=== PATIENT | female | born 1950 ===

== ENCOUNTER 2016-09-04 12:08 | Emergency (ER) | payer MEDICAID ==
[2016-09-04 12:08] VITALS: BMI 31.0
[2016-09-04 12:26] VITALS: TEMP 97.8
[2016-09-04] MEDS ORDERED: Sodium Chloride 0.9% 1,000 ML IV STA (12:45)
--- NOTE | 2016-09-04 12:49 | ED PDOC ---
Hyperglycemia/Hypoglycemia Time Seen by Provider: 09/04/16 12:31 Chief Complaint (Nursing): Weakness/Neurological Deficit Chief Complaint (Provider): Weakness/Neurological Deficit History Per: Patient History/Exam Limitations: no limitations Onset/Duration Of Symptoms: Hrs Current Symptoms Are (Timing): Still Present Severity: Mild Current Diabetic Medications: Insulin : The patient does not have any of the infectious symptoms listed except for those marked. Additional Complaint(s): Patient is a 65 year old female with a history of DM, presents to ED for evaluation of elevated blood sugar today. Patient reports taking her insulin twice daily as prescribed but felt dizzy today and took her blood sugar. Patient notes that at this time it was over 500. Denies chest pain, nausea, vomiting or abdominal pain PMD: Dr. Nova Past Medical History Reviewed: Historical Data, Nursing Documentation, Vital Signs Vital Signs: Last Vital Signs Temp 97.8 F 09/04/16 12:23 Pulse 88 09/04/16 12:23 Resp 19 09/04/16 12:23 BP 129/81 09/04/16 12:23 Pulse Ox 100 09/04/16 12:23 - Medical History PMH: Anemia, Asthma, Depression, Gastritis, HIV, HTN, Hypercholesterolemia, Hyperlipidemia Denies: Chronic Kidney Disease - Surgical History Surgical History: Endoscopy - Family History Family History: States: Unknown Family Hx - Living Arrangements Living Arrangements: With Family - Immunization History Hx Tetanus Toxoid Vaccination: Yes Hx Influenza Vaccination: Yes Hx Pneumococcal Vaccination: Yes - Home Medications Home Medications: Ambulatory Orders Medication Instructions Recorded Fluconazole [Diflucan] 100 mg PO DAILY 08/15/15 MetFORMIN [glucOPHAGE] 1,000 mg PO BID 08/15/15 Multivit, Iron, Min #5, FA 1 each PO DAILY 08/15/15 [Strovite Forte Caplet] Albuterol HFA [Ventolin HFA 90 2 puff INH Q4H 03/26/16 mcg/actuation (8 g)] Atorvastatin [Lipitor] 1 tab PO DAILY 03/26/16 Emtricita/rilpivir/tenofovir 1 tab PO DAILY 03/26/16 [Complera 200 mg-25 mg-300 mg] Enalapril Maleate [Vasotec] 1 tab PO DAILY 03/26/16 Lurasidone Hydrochloride [Latuda] 1 tab PO DAILY 03/26/16 SITagliptin [Januvia] 1 tab PO DAILY 03/26/16 - Allergies Allergies/Adverse Reactions: Allergies Allergy/AdvReac Type Severity Reaction Status Date / Time No Known Allergies Allergy Verified 08/15/15 07:08 Review of Systems ROS Statement: Except As Marked, All Systems Reviewed And Found Negative Constitutional: Negative for: Fever, Chills, Weakness Eyes: Negative for: Vision Change Cardiovascular: Negative for: Chest Pain, Palpitations Respiratory: Negative for: Shortness of Breath Gastrointestinal: Negative for: Nausea, Vomiting, Abdominal Pain Neurological: Positive for: Dizziness. Negative for: Weakness, Numbness, Headache Physical Exam - Reviewed Nursing Documentation Reviewed: Yes Vital Signs Reviewed: Yes - Physical Exam Appears: Positive for: Non-toxic, No Acute Distress Skin: Positive for: Normal Color, Warm Eye Exam: Positive for: Normal appearance Neck: Positive for: Normal, Painless ROM Cardiovascular/Chest: Positive for: Regular Rate, Rhythm. Negative for: Murmur Respiratory: Positive for: Normal Breath Sounds. Negative for: Respiratory Distress Gastrointestinal/Abdominal: Positive for: Normal Exam. Negative for: Tenderness Back: Positive for: Normal Inspection Extremity: Positive for: Normal ROM Neurologic/Psych: Positive for: Alert, Oriented - Laboratory Results Result Diagrams: 09/04/16 13:03 09/04/16 13:03 - ECG O2 Sat by Pulse Oximetry: 100 (RA) Pulse Ox Interpretation: Normal Medical Decision Making Medical Decision Making: Time: 1245 Initial impression: Hyperglycemia r/o DKA Initial plan: -- CMP -- Troponin -- Urine dip -- CBC -- NSF Scribe Attestation: Documented by Deena Martin acting as a scribe for Dina Newman MD MD Scribe Attestation: All medical record entries made by the Scribe were at my direction and personally dictated by me. I have reviewed the chart and agree that the record accurately reflects my personal performance of the history, physical exam, medical decision making, and the department course for this patient. I have also personally directed, reviewed, and agree with the discharge instructions and disposition. Disposition - Clinical Impression Clinical Impression: Hyperglycemia due to type 1 diabetes mellitus, Hyperglycemia - Patient ED Disposition Is Patient to be Admitted: No Doctor Will See Patient In The: Office Counseled Patient/Family Regarding: Studies Performed, Diagnosis - Disposition Referrals: [facility] [place] [Outside] Disposition: Routine/Home Disposition Time: 14:30 Condition: GOOD Additional Instructions: Follow up with your PCP in 2-3 days. Instructions: Diabetic Hyperglycemia (ED)
[2016-09-04 13:10] LABS: BASO % 0.6 % (0.0-2.0); EOS # 0.2 K/uL (0.0-0.7); EOS % 2.6 % (0.0-4.0); HEMATOCRIT 39.8 % (34.0-47.0); LYMPH # 1.8 K/uL (1.0-4.3); LYMPH % 29.9 % (20.0-40.0); MEAN CELL VOLUME 86.8 fl (81.0-99.0); MEAN CORPUSCULAR HEMOGLOBIN 29.1 pg (27.0-31.0); MEAN CORPUSCULAR HGB CONC 33.5 g/dL (33.0-37.0); MEAN PLATELET VOLUME 8.9 fl (7.2-11.7); MONO # 0.3 K/uL (0.0-0.8); MONO % 5.6 % (0.0-10.0); NEUT # 3.7 K/uL (1.8-7.0); NEUT % 61.3 % (50.0-75.0); NRBC % 0.1 % (0.0-0.0); RED CELL DISTRIBUTION WIDTH 13.2 % (11.5-14.5)
[2016-09-04 13:46] LABS: CHLORIDE 98 mmol/L (98-107)
[2016-09-04 13:47] LABS: POTASSIUM 4.4 MMOL/L (3.6-5.0); SODIUM 137 mmol/l (132-148)
[2016-09-04 13:49] LABS: ALB/GLOB RATIO 1.2 (1.0-2.1); AST/SGOT 24 U/L (14-36); BILIRUBIN,TOTAL 0.6 mg/dl (0.2-1.3); CARBON DIOXIDE 26 mmol/L (22-30); GFR AFRICAN-AMERICAN > 60; TOTAL PROTEIN 8.6 G/DL (6.3-8.2)
[2016-09-04 13:50] LABS: ALKALINE PHOSPHATASE 158 U/L (38-126); ALT/SGPT 24 U/L (9-52); BLOOD UREA NITROGEN 14 mg/dl (7-17); CALCIUM 9.8 mg/dL (8.4-10.2); GLUCOSE,RANDOM 319 mg/dL (65-105)
[2016-09-04] MEDS ORDERED: Insulin Regular 100 units/ml IV STA (13:55)
[2016-09-04 14:54] VITALS: BP 132/95; PULSE 86; RESP 18
[2016-09-05 20:05] VITALS: O2SAT 100
== END 2016-09-04 14:54 | disposition home or self-care (01) ==
LOC: H.ER 12:08
DX: E10.65 Type 1 diabetes mellitus with hyperglycemia (principal); E78.00 Pure hypercholesterolemia, unspecified; I10 Essential (primary) hypertension; Z79.84 Long term (current) use of oral hypoglycemic drugs

== ENCOUNTER 2017-12-01 08:40 | Inpatient (IN) | payer MEDICAID, MEDICARE ==
[2017-12-01 08:48] VITALS: BMI 31.7
[2017-12-01 10:21] LABS: BASO % 0.9 % (0.0-2.0); EOS # 0.2 K/uL (0.0-0.7); EOS % 3.6 % (0.0-4.0); LYMPH # 1.7 K/uL (1.0-4.3); LYMPH % 32.1 % (20.0-40.0); MEAN CORPUSCULAR HEMOGLOBIN 29.5 pg (27.0-31.0); MEAN CORPUSCULAR HGB CONC 33.9 g/dL (33.0-37.0); MEAN PLATELET VOLUME 7.5 fl (7.2-11.7); MONO # 0.3 K/uL (0.0-0.8); MONO % 5.8 % (0.0-10.0); NEUT % 57.6 % (50.0-75.0); NRBC % 0.1 % (0.0-0.0); RBC 4.42 Mil/uL (3.80-5.20); WHITE BLOOD COUNT 5.2 K/uL (4.8-10.8)
--- NOTE | 2017-12-01 10:30 | ED PDOC ---
HPI: Abdomen Time Seen by Provider: 12/01/17 09:06 Chief Complaint (Nursing): Abdominal Pain Chief Complaint (Provider): abdominal pain and constipation History Per: Patient History/Exam Limitations: no limitations Onset/Duration Of Symptoms: Days (4x) Current Symptoms Are (Timing): Still Present Quality Of Discomfort: "Pain" Associated Symptoms: Vomiting, Constipation. denies: Nausea, Diarrhea Additional Complaint(s): 67 year old female presents to the ED complaining of constant abdominal pain and constipation onset for 4 days. States she usually has bowel movement every 3 days. Patient states she had a hysterectomy. Reports she vomited yesterday but not today. Denies nausea or diarrhea. PMD: Clayton Garcia Past Medical History Reviewed: Historical Data, Nursing Documentation, Vital Signs Vital Signs: Last Vital Signs Temp 98.1 F 12/03/17 09:00 Pulse 90 12/03/17 09:00 Resp 19 12/03/17 09:00 BP 141/96 H 12/03/17 09:00 Pulse Ox 100 12/03/17 09:00 - Medical History PMH: Anemia, Asthma, Depression, Gastritis, HIV, HTN, Hypercholesterolemia, Hyperlipidemia Denies: Chronic Kidney Disease - Surgical History Surgical History: Endoscopy - Family History Family History: States: Unknown Family Hx - Immunization History Hx Tetanus Toxoid Vaccination: Yes Hx Influenza Vaccination: Yes Hx Pneumococcal Vaccination: Yes - Home Medications Home Medications: Ambulatory Orders Medication Instructions Recorded MetFORMIN [glucOPHAGE] 1,000 mg PO BID 08/15/15 Enalapril Maleate [Vasotec] 10 mg PO DAILY 03/26/16 Dolutegravir Sodium [Tivicay] 50 mg PO DAILY 01/28/17 Omeprazole 40 mg PO DAILY 01/28/17 Emtricitabine/Tenofovir Diso 1 tab PO DAILY 03/18/17 [Truvada 200 MG-300 MG] Albuterol/Ipratropium [Combivent 1 puff IH Q6 PRN 12/01/17 Respimat] Amitriptyline [Elavil] 100 mg PO HS 12/01/17 Aripiprazole [Abilify] 30 mg PO DAILY 12/01/17 Gabapentin [Neurontin] 300 mg PO Q12 12/01/17 Insulin Glargine,Hum.rec.anlog 50 unit SC BID 12/01/17 [Fortunato Nowak U-100] buPROPion [Wellbutrin] 75 mg PO DAILY 12/01/17 - Allergies Allergies/Adverse Reactions: Allergies Allergy/AdvReac Type Severity Reaction Status Date / Time tramadol Allergy DIZZINESS Verified 12/01/17 08:55 Review of Systems ROS Statement: Except As Marked, All Systems Reviewed And Found Negative Gastrointestinal: Positive for: Abdominal Pain, Constipation. Negative for: Nausea, Vomiting, Diarrhea Physical Exam - Reviewed Nursing Documentation Reviewed: Yes Vital Signs Reviewed: Yes - Physical Exam Appears: Positive for: Non-toxic, No Acute Distress Head Exam: Positive for: ATRAUMATIC, NORMAL INSPECTION, NORMOCEPHALIC Skin: Positive for: Normal Color, Warm, Dry Eye Exam: Positive for: Normal appearance ENT: Positive for: Normal ENT Inspection Neck: Positive for: Normal, Painless ROM, Supple. Negative for: Decreased ROM Cardiovascular/Chest: Positive for: Regular Rate, Rhythm. Negative for: Murmur Respiratory: Positive for: Normal Breath Sounds. Negative for: Decreased Breath Sounds, Wheezing, Respiratory Distress Gastrointestinal/Abdominal: Positive for: Soft, Tenderness (mild generalized). Negative for: Guarding, Rebound Back: Positive for: Normal Inspection. Negative for: L CVA Tenderness, R CVA Tenderness Extremity: Positive for: Normal ROM. Negative for: Tenderness, Pedal Edema, Deformity Neurologic/Psych: Positive for: Alert, Oriented (x3). Negative for: Motor/ Sensory Deficits - Laboratory Results Result Diagrams: 12/03/17 05:30 12/03/17 05:30 - ECG O2 Sat by Pulse Oximetry: 96 (RA) Pulse Ox Interpretation: Normal - Physician Consult Information Physician Contacted: Javad Ortega Medical Decision Making Medical Decision Making: Time: 949 Initial Impression: abdominal pain and constipation Initial Plan: --Abd & Pelvis IV Contrast CT --EKG --CMP --ED Urine dipstick --CBC w/ Differential --PTT --Prothrombin Time --Morphine 2mg IV --Urinalysis --Reevaluation Time: 1250 PROCEDURE: CT Abdomen and Pelvis with contrast HISTORY: Abd pain, constipation X 1 week COMPARISON: Noncontrast abdomen and pelvis CT 11/06/2017. TECHNIQUE: Contrast dose: Omnipaque 300, 95 cc Radiation dose: Total exam DLP = 890.05 mGy-cm. This CT exam was performed using one or more of the following dose reduction techniques: Automated exposure control, adjustment of the mA and/or kV according to patient size, and/or use of iterative reconstruction technique. FINDINGS: LOWER THORAX: Unremarkable. LIVER: Hepatic steatosis reiterated with liver appearing stable. GALLBLADDER AND BILE DUCTS: Gallbladder is again seen distended. Local reactive changes relative to the 1st and 2nd segments the duodenum are favored over possible gallbladder neck origin. No radiodense cholelithiasis is seen once again. PANCREAS: Unremarkable. No gross lesion or ductal dilatation. SPLEEN: Unremarkable. ADRENALS: Unremarkable. No mass. KIDNEYS AND URETERS: Unremarkable. No hydronephrosis. No solid mass. VASCULATURE: Unremarkable. No aortic aneurysm. BOWEL: Stomach is collapsed. Thickening of the proximal duodenum is suggested with local. Duodenal reaction suspicious for possible advanced duodenitis or even ulcer. Microperforation not completely excluded. No free intra peritoneal gas however. No ascites. Clinically correlate further. The bowel is not appear obstructed appear prominent fecal loading is seen at the ascending through hepatic flexure segments suspicious for developing constipation although the distal large bowel appears largely collapsed. Occasional diverticula are associated with the left hemicolon however there is no diverticulitis. APPENDIX: Normal appendix. PERITONEUM: Unremarkable. No free fluid. No free air. LYMPH NODES: Unremarkable. No enlarged lymph nodes. BLADDER: Unremarkable. REPRODUCTIVE: Prior hysterectomy reiterated. BONES: No acute fracture. OTHER FINDINGS: None. IMPRESSION: 1. Dural thickening at the 1st and 2nd segments the duodenum is suspected with definite kay duodenal reactive change but no free air abscess or ascites. As this reactive changes appears to involve the neck of the gallbladder, this is felt to be sympathetic rather than intrinsic to the gallbladder and the findings suspicious for prominent duodenitis or even potential micro perforated ulcer GI consultation recommended as clinically warranted. 2. Hepatic steatosis. 3. Nonacute scattered colonic diverticular changes again evident. 4. Prior hysterectomy. Time: 1409 Called co founder and president Scribe Attestation: Documented by Norma Garcia, acting as a scribe for Lily Leyva MD Provider Scribe Attestation: All medical record entries made by the Scribe were at my direction and personally dictated by me. I have reviewed the chart and agree that the record accurately reflects my personal performance of the history, physical exam, medical decision making, and the department course for this patient. I have also personally directed, reviewed, and agree with the discharge instructions and disposition. Disposition - Clinical Impression Clinical Impression: Duodenitis - Disposition Disposition Time: 15:00 Condition: STABLE - Pt Status Changed To: Hospital Disposition Of: Inpatient - Admit Certification Admit to Inpatient:: After my assessment, the patient will require hospitalization for at least two midnights. This is because of the severity of symptoms shown, intensity of services needed, and/or the medical risk in this patient being treated as an outpatient. - POA Present On Arrival: None
[2017-12-01 10:34] LABS: SQUAMOUS EPITHIAL 4 /hpf (0-5); URINE BILIRUBIN NEGATIVE (NEGATIVE); URINE BLOOD NEGATIVE (NEGATIVE); URINE CLARITY SLIGHTY-CLOUDY (Clear); URINE COLOR YELLOW (YELLOW); URINE GLUCOSE (UA) >=500 mg/dL (Normal); URINE HYALINE CAST 0-2 /hpf (0-2); URINE LEUKOCYTE ESTERASE MOD Leu/uL (Negative); URINE PROTEIN 30 mg/dL (NEGATIVE)
[2017-12-01 10:39] LABS: PARTIAL THROMBOPLASTIN TIME 32.2 Seconds (25.6-37.1); PROTHROMBIN TIME 10.9 Seconds (9.8-13.1)
[2017-12-01 10:46] LABS: ALB/GLOB RATIO 1.1 (1.0-2.1); ALBUMIN 4.4 g/dL (3.5-5.0); ALT/SGPT 27 U/L (9-52); AST/SGOT 23 U/L (14-36); BLOOD UREA NITROGEN 11 mg/dl (7-17); CALCIUM 9.7 mg/dL (8.4-10.2); GFR AFRICAN-AMERICAN > 60; GFR NON-AFRICAN AMERICAN > 60
[2017-12-01] MEDS ORDERED: Sodium Chloride 0.9% 1,000 ML IV STA (12:03)
--- NOTE | 2017-12-01 12:52 | CT ---
PROCEDURE: CT Abdomen and Pelvis with contrast HISTORY: Abd pain, constipation X 1 week COMPARISON: Noncontrast abdomen and pelvis CT 11/06/2017. TECHNIQUE: Contrast dose: Omnipaque 300, 95 cc Radiation dose: Total exam DLP = 890.05 mGy-cm. This CT exam was performed using one or more of the following dose reduction techniques: Automated exposure control, adjustment of the mA and/or kV according to patient size, and/or use of iterative reconstruction technique. FINDINGS: LOWER THORAX: Unremarkable. LIVER: Hepatic steatosis reiterated with liver appearing stable. GALLBLADDER AND BILE DUCTS: Gallbladder is again seen distended. Local reactive changes relative to the 1st and 2nd segments the duodenum are favored over possible gallbladder neck origin. No radiodense cholelithiasis is seen once again. PANCREAS: Unremarkable. No gross lesion or ductal dilatation. SPLEEN: Unremarkable. ADRENALS: Unremarkable. No mass. KIDNEYS AND URETERS: Unremarkable. No hydronephrosis. No solid mass. VASCULATURE: Unremarkable. No aortic aneurysm. BOWEL: Stomach is collapsed. Thickening of the proximal duodenum is suggested with local. Duodenal reaction suspicious for possible advanced duodenitis or even ulcer. Microperforation not completely excluded. No free intra peritoneal gas however. No ascites. Clinically correlate further. The bowel is not appear obstructed appear prominent fecal loading is seen at the ascending through hepatic flexure segments suspicious for developing constipation although the distal large bowel appears largely collapsed. Occasional diverticula are associated with the left hemicolon however there is no diverticulitis. APPENDIX: Normal appendix. PERITONEUM: Unremarkable. No free fluid. No free air. LYMPH NODES: Unremarkable. No enlarged lymph nodes. BLADDER: Unremarkable. REPRODUCTIVE: Prior hysterectomy reiterated. BONES: No acute fracture. OTHER FINDINGS: None. IMPRESSION: 1. Dural thickening at the 1st and 2nd segments the duodenum is suspected with definite kay duodenal reactive change but no free air abscess or ascites. As this reactive changes appears to involve the neck of the gallbladder, this is felt to be sympathetic rather than intrinsic to the gallbladder and the findings suspicious for prominent duodenitis or even potential micro perforated ulcer GI consultation recommended as clinically warranted. 2. Hepatic steatosis. 3. Nonacute scattered colonic diverticular changes again evident. 4. Prior hysterectomy.
--- NOTE | 2017-12-01 14:56 | CARD ---
APPROVED REPORT EKG Measurement Heart [id number] <Conclusion> Normal sinus rhythm Normal ECG
[2017-12-01] MEDS ORDERED: Piperacillin/Tazobact 3.375 gm Inj IVPB ONE (15:22)
[2017-12-01] MEDS: Piperacillin/Tazobact 3.375 GM in Sodium Chloride 0.9% 100 ML IVPB SCH ×2 (15:26→21:04)
--- NOTE | 2017-12-01 15:38 | CP.PCM.HP ---
History of Present Illness - History of Present Illness History of Present Illness: "maximus been constipated all week and last night my stomach really hurt" 67 y/o female, with PMHx remarkable for HIV, HTN, IDDM2, Asthma, presented for evaluation of acute worsening of abominal pain. Pt reports pain started 5 days ago when she became constipated. She attempted to take 2 tablets of Dulcolax but they did not help her have a bowel movement. Pain gradually worsened the past 5 days without any noticable alleviating factors. Pain was 5/10, "bloating like" in character, nonradiating, exacerbated with movement or pressure. Last night pain acutely worsened without triggering factor, prompting pt to come to ED for evaluation. She reports she has associated nausea with loss of appetite. She had 1 episode of vomiting yesterday that was NBNB. Denies fever/chills, CP/ SOB/Palpitations, diarrhea, urinary symptoms. ROS: 12 points reviewed, as per HPI PMD: Clayton Garcia PMHx: HIV, IDDM2, HTN, HLD, Asthma (unspecified severity) Meds: as per med rec ALL: Tramadol (pruritus) PsurgHx: hysterecomty (2010) due to fibroids FamilyHx: denies family hx of [place], [place], DM Social Hx: 4 ciggarettes per day since age 15, denies ETOH/drug abuse Next of Kin: as per demographics (confirmed) Code Status: full code ED course: Vitals: tachycardia 118, otherwise stable CBC: wnl CMP: elevated glucose Coags: wnl UA: mod LE, mod RBCs Imaging Abd pelvis/CT w contrast: dual thickening at the 1st/2nd segments the duodenum is suspected with definite kay duodenal reactive changes but no free air abscess or ascites. Reactive changes appear to involve the neck of the gallbladder. This is felt to be sympathetic rather than intrinsic to gallbladder and the finding suspicious for prominent duodenitis or even potential microperforation ulcer. Tx npo, pain control, IV fluids, GI and Surg Consults Present on Admission - Present on Admission Any Indicators Present on Admission: No History of DVT/PE: No History of Uncontrolled Diabetes: No Urinary Catheter: No Decubitus Ulcer Present: No Review of Systems - Review of Systems All systems: reviewed and no additional remarkable complaints except Past Patient History - Infectious Disease Hx of Infectious Diseases: None - Past Medical History & Family History Past Medical History?: Yes Past Family History: Reviewed and not pertinent - Past Social History Smoking Status: Light Smoker < 10 Cigarettes Daily Alcohol: None Drugs: Denies Home Situation {Lives}: Alone - CARDIAC Hx Hypercholesterolemia: Yes Hx Hypertension: Yes - PULMONARY Hx Asthma: Yes - NEUROLOGICAL Hx Neurological Disorder: Yes Other/Comment: Neuropathy - HEENT Hx HEENT Problems: Yes Other/Comment: OROPHARYNGEAL CANDIDIASIS. Blurry vision - RENAL Hx Chronic Kidney Disease: No - ENDOCRINE/METABOLIC Hx Endocrine Disorders: Yes Hx Diabetes Mellitus Type 1: Yes Hx Diabetes Mellitus Type 2: Yes - HEMATOLOGICAL/ONCOLOGICAL Hx Anemia: Yes Hx Human Immunodeficiency Virus (HIV): Yes - INTEGUMENTARY Hx Dermatological Problems: No - MUSCULOSKELETAL/RHEUMATOLOGICAL Hx Musculoskeletal Disorders: Yes Other/Comment: LT KNEE PAIN - GASTROINTESTINAL Hx Gastritis: Yes - GENITOURINARY/GYNECOLOGICAL Hx Genitourinary Disorders: No - PSYCHIATRIC Hx Depression: Yes - SURGICAL HISTORY Hx Surgeries: Yes Hx Hysterectomy: Yes Other/Comment: RT PAROTID MASS NEEDLE ASPIRATION - ANESTHESIA Hx Anesthesia: Yes Hx Anesthesia Reactions: No Hx Malignant Hyperthermia: No Meds Allergies/Adverse Reactions: Allergies Allergy/AdvReac Type Severity Reaction Status Date / Time tramadol Allergy DIZZINESS Verified 12/01/17 08:55 Physical Exam - Constitutional Appears: Well, Non-toxic, No Acute Distress - Head Exam Head Exam: ATRAUMATIC, NORMAL INSPECTION, NORMOCEPHALIC - Eye Exam Eye Exam: EOMI, Normal appearance, PERRL. absent: Conjunctival injection, Scleral icterus Pupil Exam: NORMAL ACCOMODATION, PERRL - ENT Exam ENT Exam: Mucous Membranes Moist, Normal Exam - Neck Exam Neck exam: Positive for: Normal Inspection. Negative for: Lymphadenopathy - Respiratory Exam Respiratory Exam: Clear to Auscultation Bilateral, NORMAL BREATHING PATTERN. absent: Accessory Muscle Use, Decreased Breath Sounds, Rales, Rhonchi, Wheezes, Respiratory Distress - Cardiovascular Exam Cardiovascular Exam: REGULAR RHYTHM, RRR, +S1, +S2. absent: Tachycardia, JVD, Systolic Murmur - GI/Abdominal Exam GI & Abdominal Exam: Distended (tympanic to percussion diffusely ), Normal Bowel Sounds, Soft, Tenderness. absent: Diminished Bowel Sounds, Guarding, Mass , Pulsatile Mass, Rebound, Rigid - Extremities Exam Extremities exam: Positive for: calf tenderness, normal capillary refill, normal inspection, pedal pulses present. Negative for: pedal edema - Back Exam Back exam: absent: CVA tenderness (L), CVA tenderness (R), tenderness - Neurological Exam Neurological exam: Alert, CN II-XII Intact, Normal Gait, Oriented x3, Reflexes Normal - Psychiatric Exam Psychiatric exam: Normal Affect, Normal Mood - Skin Skin Exam: Dry, Intact, Warm Results - Vital Signs Recent Vital Signs: Last Vital Signs Temp 97.8 F 12/01/17 08:48 Pulse 113 H 12/01/17 08:48 Resp 20 12/01/17 08:48 BP 108/78 12/01/17 08:48 Pulse Ox 96 12/01/17 14:19 - Labs Result Diagrams: 12/01/17 09:59 12/01/17 10:17 Labs: Laboratory Results - last 24 hr 12/01/17 12/01/17 12/01/17 09:59 10:17 10:17 WBC 5.2 RBC 4.42 Hgb 13.0 Hct 38.4 MCV 87.0 MCH 29.5 MCHC 33.9 RDW 14.0 Plt Count 282 MPV 7.5 Neut % (Auto) 57.6 Lymph % (Auto) 32.1 [place] % (Auto) 5.8 Eos % (Auto) 3.6 Baso % (Auto) 0.9 Neut # (Auto) 3.0 Lymph # (Auto) 1.7 [place] # (Auto) 0.3 Eos # (Auto) 0.2 Baso # (Auto) 0.0 PT 10.9 INR 1.0 APTT 32.2 Sodium 139 Potassium 4.1 Chloride 102 Carbon Dioxide 27 Anion Gap 14 BUN 11 Creatinine 0.7 Est GFR ( Amer) > 60 Est GFR (Non-Af Amer) > 60 Random Glucose 223 H Calcium 9.7 Total Bilirubin 0.4 AST 23 ALT 27 Alkaline Phosphatase 203 H Total Protein 8.3 H Albumin 4.4 Globulin 3.9 Albumin/Globulin Ratio 1.1 Urine Color Urine Clarity Urine pH Ur Specific [place] Urine Protein Urine Glucose (UA) Urine Ketones Urine Blood Urine Nitrate Urine Bilirubin Urine Urobilinogen Ur Leukocyte Esterase Urine RBC (Auto) Urine Microscopic WBC Ur Squamous Epith Cells Hyaline Casts 12/01/17 10:21 WBC RBC Hgb Hct MCV MCH MCHC RDW Plt Count MPV Neut % (Auto) Lymph % (Auto) [place] % (Auto) Eos % (Auto) Baso % (Auto) Neut # (Auto) Lymph # (Auto) [place] # (Auto) Eos # (Auto) Baso # (Auto) PT INR APTT Sodium Potassium Chloride Carbon Dioxide Anion Gap BUN Creatinine Est GFR ( Amer) Est GFR (Non-Af Amer) Random Glucose Calcium Total Bilirubin AST ALT Alkaline Phosphatase Total Protein Albumin Globulin Albumin/Globulin Ratio Urine Color Yellow Urine Clarity Slighty-cloudy Urine pH 6.0 Ur Specific [place] 1.026 Urine Protein 30 Urine Glucose (UA) >=500 Urine Ketones Negative Urine Blood Negative Urine Nitrate Negative Urine Bilirubin Negative Urine Urobilinogen 2.0 H Ur Leukocyte Esterase Mod Urine RBC (Auto) 10 H Urine Microscopic WBC 3 Ur Squamous Epith Cells 4 Hyaline Casts 0-2 Assessment & Plan - Assessment and Plan (Free Text) Assessment: 67 y/o female admitted for worsening abdominal pain and possible gastric microperfortation. Plan: 1) Abdominal Pain/Constipation/Suspected Microperf -NPO -CT scan as described above -seen by GI, follow up further recommnedations -Protonix BID -Fleet enema -pain control as ordered -zofran PRN nausea -IV fluid hydration, NS 200mls/hr -Gen surg consult pending 2) HIV -stable -VL undetectable -CD4 >600 -c/w current medications 3) IDDM2 -c/w nighttime levemir dose -lispro coverage scale -hypoglycemia protocol 4) Asthma (unspecified severity) -stable -c/w home meds as ordered -albuterol prn SOB 5) DVT PPx -ambulation -SCDs 6) Code Status -full code
[2017-12-01] MEDS ORDERED: Glucagon Recombinant 1 mg Inj IM PRN (15:43)
[2017-12-01] MEDS ORDERED: Dextrose 50% SYRINGE Inj (50 ml) IV PRN (15:43)
--- NOTE | 2017-12-01 17:26 | CP.PCM.CON ---
History of Present Illness - History of Present Illness History of Present Illness: Surgery 67 F w [facility] of HIV, DM , gastritis and hysterectomy came with abd pain and constipation for 1 week. Pain is located on epigatric area and now more diffuse. ALso feeling bloating. Reports episode of vomiting. Non bloody non bilious. She had soup yesterday and vomited food content after having soup. Ducolax didn;t relieve sx. Pain is gradualy worsen. Currently pt is hungry. Denies fever, CP , SOB, hematuria, dysuria, hematemesis, hemoptesis, hematochezia, melena. Pt reports she had outpatient EGD 1 month ago. Doesn't know the result. Reports taking omerprazole BID. CT reads dudenitis and can not rule out possible microperf. Sx is consulted to evaluate for possible Duodenal perforation. PMHx: HIV, IDDM2, HTN, HLD, Asthma ALL: Tramadol (pruritus) PsurgHx: hysterecomty (2010) due to fibroids FamilyHx: denies family hx of CA, PR, DM Social Hx: 4 ciggarettes per day since age 15, denies ETOH/drug abuse Review of Systems - Review of Systems Review of Systems: See HPI Past Patient History - Infectious Disease Hx of Infectious Diseases: None - Past Medical History & Family History Past Medical History?: Yes Past Family History: Reviewed and not pertinent - Past Social History Smoking Status: Light Smoker < 10 Cigarettes Daily Alcohol: None Drugs: Denies Home Situation {Lives}: Alone - CARDIAC Hx Hypercholesterolemia: Yes Hx Hypertension: Yes - PULMONARY Hx Asthma: Yes - NEUROLOGICAL Hx Neurological Disorder: Yes Other/Comment: Neuropathy - HEENT Hx HEENT Problems: Yes Other/Comment: OROPHARYNGEAL CANDIDIASIS. Blurry vision - RENAL Hx Chronic Kidney Disease: No - ENDOCRINE/METABOLIC Hx Endocrine Disorders: Yes Hx Diabetes Mellitus Type 1: Yes Hx Diabetes Mellitus Type 2: Yes - HEMATOLOGICAL/ONCOLOGICAL Hx Anemia: Yes Hx Human Immunodeficiency Virus (HIV): Yes - INTEGUMENTARY Hx Dermatological Problems: No - MUSCULOSKELETAL/RHEUMATOLOGICAL Hx Musculoskeletal Disorders: Yes Other/Comment: LT KNEE PAIN - GASTROINTESTINAL Hx Gastritis: Yes - GENITOURINARY/GYNECOLOGICAL Hx Genitourinary Disorders: No - PSYCHIATRIC Hx Depression: Yes - SURGICAL HISTORY Hx Surgeries: Yes Hx Hysterectomy: Yes Other/Comment: RT PAROTID MASS NEEDLE ASPIRATION - ANESTHESIA Hx Anesthesia: Yes Hx Anesthesia Reactions: No Hx Malignant Hyperthermia: No Meds Allergies/Adverse Reactions: Allergies Allergy/AdvReac Type Severity Reaction Status Date / Time tramadol Allergy DIZZINESS Verified 12/01/17 08:55 - Medications Medications: Current Medications Albuterol (Ventolin Hfa 90 Mcg/Actuation (8 G)) 2 puff INH Q4H [facility] Dextrose (Dextrose 50% Inj) 0 ml IV STAT PRN; Protocol PRN Reason: Hypoglycemia Protocol Dextrose (Glutose 15) 0 gm PO ONCE PRN; Protocol PRN Reason: Hypoglycemia Protocol Dolutegravir Sodium (Tivicay) 50 mg PO DAILY [facility] PRN Reason: Protocol Duloxetine HCl (Cymbalta) 60 mg PO DAILY [facility] Emtricitabine/Tenofovir (Truvada 200 Mg-300 Mg) 1 tab PO DAILY [facility] PRN Reason: Protocol Enalapril Maleate (Vasotec) 10 mg PO DAILY [facility] Glucagon (Glucagen Diagnostic Kit) 0 mg IM STAT PRN; Protocol PRN Reason: Hypoglycemia Protocol Home Med (Bupropion Xl [Wellbutrin Xl]) 1 tab PO DAILY [facility] Piperacillin Sod/Tazobactam (Sod 3.375 gm/ Sodium Chloride) 100 mls @ 100 mls/ hr IVPB Q6 [facility] PRN Reason: Protocol Last Admin: 12/01/17 15:26 Dose: 100 mls/hr Insulin Detemir (Levemir) 30 units SC QAM [facility] Insulin Human Lispro (Humalog) 0 units SC ACHS [facility] PRN Reason: Protocol Ketorolac Tromethamine (Toradol) 15 mg IVP Q6 PRN PRN Reason: Pain, moderate (4-7) Morphine Sulfate (Morphine) 2 mg IVP Q4 PRN PRN Reason: Pain, severe (8-10) Ondansetron HCl (Zofran Inj) 4 mg IVP Q6 PRN PRN Reason: Nausea/Vomiting Pantoprazole Sodium (Protonix Inj) 40 mg IVP BID [facility] Last Admin: 12/01/17 15:30 Dose: 40 mg Sodium Phosphate (Fleet Enema) 135 ml ID ONCE ONE Stop: 12/01/17 18:01 Physical Exam - Constitutional Appears: No Acute Distress - Head Exam Head Exam: ATRAUMATIC, NORMAL INSPECTION, NORMOCEPHALIC - Eye Exam Eye Exam: EOMI, Normal appearance, PERRL Pupil Exam: NORMAL ACCOMODATION, PERRL - ENT Exam ENT Exam: Mucous Membranes Moist, Normal Exam - Neck Exam Neck exam: Positive for: Normal Inspection - Respiratory Exam Respiratory Exam: NORMAL BREATHING PATTERN - Cardiovascular Exam Cardiovascular Exam: Tachycardia, +S1, +S2 - GI/Abdominal Exam GI & Abdominal Exam: Guarding, Soft, Tenderness. absent: Distended, Firm, Hernia, Organomegaly, Pulsatile Mass, Rebound, Rigid Additional comments: Obese abd. Low abd TTP. - Exam Exam: NORMAL INSPECTION - Extremities Exam Extremities exam: Positive for: full ROM, normal inspection - Back Exam Back exam: NORMAL INSPECTION - Neurological Exam Neurological exam: Alert, CN II-XII Intact, Normal Gait, Oriented x3, Reflexes Normal - Psychiatric Exam Psychiatric exam: Normal Affect, Normal Mood - Skin Skin Exam: Dry, Intact, Normal Color, Warm Results - Vital Signs Recent Vital Signs: Last Vital Signs Temp 97.7 F 12/01/17 15:44 Pulse 78 12/01/17 15:44 Resp 18 12/01/17 15:44 BP 144/90 12/01/17 15:44 Pulse Ox 97 12/01/17 15:44 - Labs Result Diagrams: 12/01/17 09:59 12/01/17 10:17 Labs: Laboratory Results - last 24 hr 12/01/17 12/01/17 12/01/17 09:59 10:17 10:17 WBC 5.2 RBC 4.42 Hgb 13.0 Hct 38.4 MCV 87.0 MCH 29.5 MCHC 33.9 RDW 14.0 Plt Count 282 MPV 7.5 Neut % (Auto) 57.6 Lymph % (Auto) 32.1 Mcminn % (Auto) 5.8 Eos % (Auto) 3.6 Baso % (Auto) 0.9 Neut # (Auto) 3.0 Lymph # (Auto) 1.7 Mcminn # (Auto) 0.3 Eos # (Auto) 0.2 Baso # (Auto) 0.0 PT 10.9 INR 1.0 APTT 32.2 Sodium 139 Potassium 4.1 Chloride 102 Carbon Dioxide 27 Anion Gap 14 BUN 11 Creatinine 0.7 Est GFR ( Amer) > 60 Est GFR (Non-Af Amer) > 60 POC Glucose (mg/dL) Random Glucose 223 H Calcium 9.7 Total Bilirubin 0.4 AST 23 ALT 27 Alkaline Phosphatase 203 H Total Protein 8.3 H Albumin 4.4 Globulin 3.9 Albumin/Globulin Ratio 1.1 Urine Color Urine Clarity Urine pH Ur Specific Percy Urine Protein Urine Glucose (UA) Urine Ketones Urine Blood Urine Nitrate Urine Bilirubin Urine Urobilinogen Ur Leukocyte Esterase Urine RBC (Auto) Urine Microscopic WBC Ur Squamous Epith Cells Hyaline Casts 12/01/17 12/01/17 10:21 16:29 WBC RBC Hgb Hct MCV MCH MCHC RDW Plt Count MPV Neut % (Auto) Lymph % (Auto) Mcminn % (Auto) Eos % (Auto) Baso % (Auto) Neut # (Auto) Lymph # (Auto) Mcminn # (Auto) Eos # (Auto) Baso # (Auto) PT INR APTT Sodium Potassium Chloride Carbon Dioxide Anion Gap BUN Creatinine Est GFR ( Amer) Est GFR (Non-Af Amer) POC Glucose (mg/dL) 76 Random Glucose Calcium Total Bilirubin AST ALT Alkaline Phosphatase Total Protein Albumin Globulin Albumin/Globulin Ratio Urine Color Yellow Urine Clarity Slighty-cloudy Urine pH 6.0 Ur Specific Percy 1.026 Urine Protein 30 Urine Glucose (UA) >=500 Urine Ketones Negative Urine Blood Negative Urine Nitrate Negative Urine Bilirubin Negative Urine Urobilinogen 2.0 H Ur Leukocyte Esterase Mod Urine RBC (Auto) 10 H Urine Microscopic WBC 3 Ur Squamous Epith Cells 4 Hyaline Casts 0-2 Assessment & Plan - Assessment and Plan (Free Text) Assessment: Duodenitis CT reads duodenitis can not rule out Possible microperf. No free air -GI on board -PPI -NPO -IVF -Pain/nausea control -Serial abd exam WIll DW Dr. Del Angel
[2017-12-01] MEDS ORDERED: Dextrose 50% SYRINGE Inj (50 ml) ONE (18:23)
[2017-12-01] MEDS: Albuterol HFA 90 mcg/actuation (8 g) INH SCH ×2 (20:13→23:34)
[2017-12-01] MEDS: Insulin Lispro (humaLOG) 100 Units/ml Inj SC SCH (22:36)
[2017-12-02] MEDS: Piperacillin/Tazobact 3.375 GM in Sodium Chloride 0.9% 100 ML IVPB SCH ×3 (04:11→15:39)
[2017-12-02] MEDS: Albuterol HFA 90 mcg/actuation (8 g) INH SCH ×6 (04:13→23:42)
[2017-12-02] MEDS: Insulin Lispro (humaLOG) 100 Units/ml Inj SC SCH ×4 (06:57→21:58)
--- NOTE | 2017-12-02 07:46 | CP.PCM.PN ---
Subjective - Date & Time of Evaluation Date of Evaluation: 12/02/17 Time of Evaluation: 07:44 - Subjective Subjective: General surgery progress note for Dr. Aryan Barba, PGY-2 Pt S & E at bedside at 0650 pt reports abdominal pain is improved. Denies N & V, F & C. No other complaints at this time. Objective - Vital Signs/Intake and Output Vital Signs (last 24 hours): Temp Pulse Resp BP Pulse Ox 97.5 F L 96 H 20 122/82 100 12/02/17 00:55 12/02/17 00:55 12/02/17 00:55 12/02/17 00:55 12/02/17 00:55 - Medications Medications: Current Medications Albuterol (Ventolin Hfa 90 Mcg/Actuation (8 G)) 2 puff INH Q4H [facility] Last Admin: 12/02/17 04:13 Dose: 2 puff Bupropion HCl (Wellbutrin) 75 mg PO DAILY [facility] Dextrose (Dextrose 50% Inj) 0 ml IV STAT PRN; Protocol PRN Reason: Hypoglycemia Protocol Last Admin: 12/01/17 18:28 Dose: 50 ml Dextrose (Glutose 15) 0 gm PO ONCE PRN; Protocol PRN Reason: Hypoglycemia Protocol Dolutegravir Sodium (Tivicay) 50 mg PO DAILY [facility] PRN Reason: Protocol Duloxetine HCl (Cymbalta) 60 mg PO DAILY [facility] Emtricitabine/Tenofovir (Truvada 200 Mg-300 Mg) 1 tab PO DAILY [facility] PRN Reason: Protocol Enalapril Maleate (Vasotec) 10 mg PO DAILY [facility] Glucagon (Glucagen Diagnostic Kit) 0 mg IM STAT PRN; Protocol PRN Reason: Hypoglycemia Protocol Piperacillin Sod/Tazobactam (Sod 3.375 gm/ Sodium Chloride) 100 mls @ 100 mls/ hr IVPB Q6 [facility] PRN Reason: Protocol Last Admin: 12/02/17 04:11 Dose: 100 mls/hr Dextrose/Sodium Chloride (Dextrose 5%-0.45% Ns 500 Ml) 1,000 mls @ 100 mls/hr IV .Q10H [facility] Last Admin: 12/02/17 04:13 Dose: 100 mls/hr Insulin Detemir (Levemir) 30 units SC QAM [facility] Insulin Human Lispro (Humalog) 0 units SC ACHS [facility] PRN Reason: Protocol Last Admin: 12/02/17 06:57 Dose: Not Given Ketorolac Tromethamine (Toradol) 15 mg IVP Q6 PRN PRN Reason: Pain, moderate (4-7) Morphine Sulfate (Morphine) 2 mg IVP Q4 PRN PRN Reason: Pain, severe (8-10) Last Admin: 12/02/17 05:56 Dose: 2 mg Ondansetron HCl (Zofran Inj) 4 mg IVP Q6 PRN PRN Reason: Nausea/Vomiting Pantoprazole Sodium (Protonix Inj) 40 mg IVP BID [facility] Last Admin: 12/01/17 15:30 Dose: 40 mg - Labs Labs: 12/01/17 09:59 12/01/17 10:17 PT 10.9 Seconds (9.8-13.1) 12/01/17 10:17 INR 1.0 (0.9-1.2) 12/01/17 10:17 APTT 32.2 Seconds (25.6-37.1) 12/01/17 10:17 - Constitutional Appears: Non-toxic, No Acute Distress - Head Exam Head Exam: ATRAUMATIC, NORMAL INSPECTION, NORMOCEPHALIC - Eye Exam Eye Exam: EOMI, Normal appearance - ENT Exam ENT Exam: Mucous Membranes Moist, Normal Exam - Neck Exam Neck Exam: Full ROM, Normal Inspection - Respiratory Exam Respiratory Exam: NORMAL BREATHING PATTERN - Cardiovascular Exam Cardiovascular Exam: REGULAR RHYTHM, +S1, +S2 - GI/Abdominal Exam GI & Abdominal Exam: Soft, Tenderness (lower abdomen). absent: Distended, Firm , Guarding, Rigid - Extremities Exam Extremities Exam: Normal Inspection - Neurological Exam Neurological Exam: Alert, Awake, CN II-XII Intact, Oriented x3 - Psychiatric Exam Psychiatric exam: Normal Affect, Normal Mood - Skin Skin Exam: Dry, Intact, Normal Color, Warm Assessment and Plan - Assessment and Plan (Free Text) Assessment: 67F w/duodenitis Plan: NPO pain control IVF Serial ab exams Anti-emetic OOBTC Activity as tolerated GI following- possible EGD tomorrow PPI DW attending Freda, PGY-2
[2017-12-02] MEDS ORDERED: Mineral Oil Enema 135 ml PR ONE (08:28)
--- NOTE | 2017-12-02 09:10 | CP.PCM.PN ---
Subjective - Date & Time of Evaluation Date of Evaluation: 12/02/17 Time of Evaluation: 07:45 - Subjective Subjective: Patient seen and examined at bedside, NAD, c/o diffuse abdominal pain, states she got only some relief from pain medication, c/o feeling constipated yet after BM x1, denies N/V/D, blood in the stools, chills or HALL. Objective - Vital Signs/Intake and Output Vital Signs (last 24 hours): Temp Pulse Resp BP Pulse Ox 97.5 F L 80 19 118/81 100 12/02/17 08:15 12/02/17 08:15 12/02/17 08:15 12/02/17 08:15 12/02/17 08:15 - Medications Medications: Current Medications Albuterol (Ventolin Hfa 90 Mcg/Actuation (8 G)) 2 puff INH Q4H [facility] Last Admin: 12/02/17 04:13 Dose: 2 puff Bisacodyl (Dulcolax) 10 mg [place] ONCE ONE Stop: 12/02/17 10:01 Bupropion HCl (Wellbutrin) 75 mg PO DAILY [facility] Dextrose (Dextrose 50% Inj) 0 ml IV STAT PRN; Protocol PRN Reason: Hypoglycemia Protocol Last Admin: 12/01/17 18:28 Dose: 50 ml Dextrose (Glutose 15) 0 gm PO ONCE PRN; Protocol PRN Reason: Hypoglycemia Protocol Dolutegravir Sodium (Tivicay) 50 mg PO DAILY [facility] PRN Reason: Protocol Duloxetine HCl (Cymbalta) 60 mg PO DAILY [facility] Emtricitabine/Tenofovir (Truvada 200 Mg-300 Mg) 1 tab PO DAILY [facility] PRN Reason: Protocol Enalapril Maleate (Vasotec) 10 mg PO DAILY [facility] Glucagon (Glucagen Diagnostic Kit) 0 mg IM STAT PRN; Protocol PRN Reason: Hypoglycemia Protocol Piperacillin Sod/Tazobactam (Sod 3.375 gm/ Sodium Chloride) 100 mls @ 100 mls/ hr IVPB Q6 [facility] PRN Reason: Protocol Last Admin: 12/02/17 04:11 Dose: 100 mls/hr Dextrose/Sodium Chloride (Dextrose 5%-0.45% Ns 500 Ml) 1,000 mls @ 100 mls/hr IV .Q10H [facility] Last Admin: 12/02/17 04:13 Dose: 100 mls/hr Insulin Detemir (Levemir) 30 units SC QAM [facility] Insulin Human Lispro (Humalog) 0 units SC ACHS [facility] PRN Reason: Protocol Last Admin: 12/02/17 06:57 Dose: Not Given Ketorolac Tromethamine (Toradol) 15 mg IVP Q6 PRN PRN Reason: Pain, moderate (4-7) Morphine Sulfate (Morphine) 2 mg IVP Q4 PRN PRN Reason: Pain, severe (8-10) Last Admin: 12/02/17 05:56 Dose: 2 mg Ondansetron HCl (Zofran Inj) 4 mg IVP Q6 PRN PRN Reason: Nausea/Vomiting Pantoprazole Sodium (Protonix Inj) 40 mg IVP BID [facility] Last Admin: 12/01/17 15:30 Dose: 40 mg - Labs Labs: 12/01/17 09:59 12/01/17 10:17 PT 10.9 Seconds (9.8-13.1) 12/01/17 10:17 INR 1.0 (0.9-1.2) 12/01/17 10:17 APTT 32.2 Seconds (25.6-37.1) 12/01/17 10:17 - Constitutional Appears: No Acute Distress - Head Exam Head Exam: ATRAUMATIC, NORMOCEPHALIC - Eye Exam Eye Exam: EOMI, PERRL - ENT Exam ENT Exam: Mucous Membranes Moist - Respiratory Exam Respiratory Exam: Clear to Ausculation Bilateral. absent: Rales, Rhonchi, Wheezes - Cardiovascular Exam Cardiovascular Exam: REGULAR RHYTHM, +S1, +S2 - GI/Abdominal Exam GI & Abdominal Exam: Distended, Soft, Tenderness, Hypoactive Bowel Sounds Additional comments: diffuse tenderness palption of the abdomen - Extremities Exam Extremities Exam: Full ROM - Neurological Exam Neurological Exam: Alert, Awake, CN II-XII Intact, Oriented x3 - Psychiatric Exam Psychiatric exam: Anxious - Skin Skin Exam: Normal Color, Warm Assessment and Plan - Assessment and Plan (Free Text) Assessment: 67 y/o female, PMHx of HIV, HTN, IDDM2 and Asthma, admitted yesterday for abdominal pain x 5 days, had a CT of abdomen report with possible Duodenitis and /or even ulcer and possible microperfortation, surgical team and GI was consulted, now pending GI recommendation. Chart was reviewed, VS and nursing notes. Plan: Plan: Duodenitis/Abdominal Pain/Constipation -NPO -CT scan described above (see full report) -GI consulted, pending further recommnedations and Upper endoscopic procedure -Protonix 40mg iv-BID -Fleet enema -pain control-Toradol 15 iv q6h prn, morphine 2mg iv q4h prn -zofran PRN nausea -IV fluid hydration-D5/0.45NS -Surgery consult-f/u recommendations -Zosyn 3.375 iv q6h HIV -stable -VL undetectable -CD4 >600 -c/w current medications-Truvada 300/200 po qd, Tivicay 50mg po qd IDDM2 -c/w nighttime levemir dose -lispro coverage scale -hypoglycemia protocol HTN -stable -Enalpril 10 po qd Asthma -stable -c/w home meds as ordered -albuterol prn SOB DVT PPx -lovenox 40 sc qd -Ambulation
[2017-12-02] MEDS: Insulin Detemir 100 Units/ml Inj SC SCH ×2 (09:31→11:28)
[2017-12-02] MEDS: Emtricitabine-Tenofovir 200 mg-300 mg Tab PO SCH (10:02)
[2017-12-02 12:18] LABS: HEMOGLOBIN 12.5 g/dL (12.0-16.0); MEAN CELL VOLUME 88.3 fl (81.0-99.0); MEAN CORPUSCULAR HEMOGLOBIN 29.2 pg (27.0-31.0); RBC 4.28 Mil/uL (3.80-5.20); WHITE BLOOD COUNT 4.3 K/uL (4.8-10.8)
[2017-12-02 12:24] LABS: ALB/GLOB RATIO 1.1 (1.0-2.1); ALBUMIN 3.9 g/dL (3.5-5.0); ALT/SGPT 31 U/L (9-52); AST/SGOT 21 U/L (14-36); BLOOD UREA NITROGEN 7 mg/dl (7-17); GFR AFRICAN-AMERICAN > 60; GFR NON-AFRICAN AMERICAN > 60
[2017-12-02] MEDS ORDERED: Peg-Electrolyte Oral Soln 4L (Golytely) PO ONE (14:10)
--- NOTE | 2017-12-02 14:26 | CP.PCM.CON ---
<Javad Ortega - Last Filed: 12/02/17 14:54> History of Present Illness - History of Present Illness History of Present Illness: Initial PGY5 GI Consult Keerthi Hummel is a 67F w/ hx of DM, HIV, HTN who presented with diffuse abd pain. She noted that the pain started a few days prior to admission. Pt states that her last BM was 1 week prior. She notes having chronic constipation and her typical BM is every 3 days. She has tried dulcolax without sig improvement. She notes some improvement in pain after passing flatus. She states that the pain is around 7 out of 10 and intermittent. She denies any fever, chills or diaphoresis. CT abd revealed significant stool burden in the colon and proximal duodenal inflammation (likley early ulcer). Radiology could not rule out a microperforation. Pt was NPO overnight and able to tolerate liquid diet in the AM. She has had prior EGDs and colonoscopies with Dr. Morgan. PMHx: HIV, IDDM2, HTN, HLD, Asthma PsurgHx: hysterecomty (2010) due to fibroids FamilyHx: denies family hx of [place], [place], DM Social Hx: 4 ciggarettes per day since age 15, denies ETOH/drug abuse Endo Hx: 03/2016: EGD- no acute finding, 06/2016: small hiatial hernia; 12/2016 & 03/2017: poor prep ROS: 12 point ROS conducted, neg other than above Past Patient History - Infectious Disease Hx of Infectious Diseases: None - Past Medical History & Family History Past Medical History?: Yes - Past Social History Smoking Status: Light Smoker < 10 Cigarettes Daily - CARDIAC Hx Cardiac Disorders: Yes Hx Hypercholesterolemia: Yes Hx Hypertension: Yes - PULMONARY Hx Respiratory Disorders: Yes Hx Asthma: Yes - NEUROLOGICAL Hx Neurological Disorder: No - HEENT Hx HEENT Problems: No - RENAL Hx Chronic Kidney Disease: No - ENDOCRINE/METABOLIC Hx Endocrine Disorders: Yes Hx Diabetes Mellitus Type 2: Yes - HEMATOLOGICAL/ONCOLOGICAL Hx Blood Disorders: Yes Hx Anemia: Yes Hx Human Immunodeficiency Virus (HIV): Yes - INTEGUMENTARY Hx Dermatological Problems: No - MUSCULOSKELETAL/RHEUMATOLOGICAL Hx Musculoskeletal Disorders: No Hx Falls: Yes - GASTROINTESTINAL Hx Gastrointestinal Disorders: Yes Hx Gastritis: Yes - GENITOURINARY/GYNECOLOGICAL Hx Genitourinary Disorders: No - PSYCHIATRIC Hx Psychophysiologic Disorder: Yes Hx Depression: Yes - SURGICAL HISTORY Hx Surgeries: Yes Hx Hysterectomy: Yes Other/Comment: RT PAROTID MASS NEEDLE ASPIRATION - ANESTHESIA Hx Anesthesia: Yes Hx Anesthesia Reactions: No Hx Malignant Hyperthermia: No Meds Allergies/Adverse Reactions: Allergies Allergy/AdvReac Type Severity Reaction Status Date / Time tramadol Allergy DIZZINESS Verified 12/01/17 08:55 - Medications Medications: Current Medications Albuterol (Ventolin Hfa 90 Mcg/Actuation (8 G)) 2 puff INH Q4H [facility] Last Admin: 12/02/17 12:48 Dose: 2 puff Bupropion HCl (Wellbutrin) 75 mg PO DAILY [facility] Last Admin: 12/02/17 10:01 Dose: 75 mg Dextrose (Dextrose 50% Inj) 0 ml IV STAT PRN; Protocol PRN Reason: Hypoglycemia Protocol Last Admin: 12/01/17 18:28 Dose: 50 ml Dextrose (Glutose 15) 0 gm PO ONCE PRN; Protocol PRN Reason: Hypoglycemia Protocol Dolutegravir Sodium (Tivicay) 50 mg PO DAILY [facility] PRN Reason: Protocol Last Admin: 12/02/17 10:01 Dose: 50 mg Duloxetine HCl (Cymbalta) 60 mg PO DAILY [facility] Last Admin: 12/02/17 10:02 Dose: 60 mg Emtricitabine/Tenofovir (Truvada 200 Mg-300 Mg) 1 tab PO DAILY [facility] PRN Reason: Protocol Last Admin: 12/02/17 10:02 Dose: 1 tab Enalapril Maleate (Vasotec) 10 mg PO DAILY [facility] Last Admin: 12/02/17 10:02 Dose: 10 mg Enoxaparin Sodium (Lovenox) 40 mg SC DAILY [facility] PRN Reason: Protocol Glucagon (Glucagen Diagnostic Kit) 0 mg IM STAT PRN; Protocol PRN Reason: Hypoglycemia Protocol Piperacillin Sod/Tazobactam (Sod 3.375 gm/ Sodium Chloride) 100 mls @ 100 mls/ hr IVPB Q6 [facility] PRN Reason: Protocol Last Admin: 12/02/17 09:18 Dose: 100 mls/hr Dextrose/Sodium Chloride (Dextrose 5%-0.45% Ns 500 Ml) 1,000 mls @ 100 mls/hr IV .Q10H [facility] Last Admin: 12/02/17 04:13 Dose: 100 mls/hr Insulin Detemir (Levemir) 30 units SC QAM [facility] Last Admin: 12/02/17 11:28 Dose: 30 units Insulin Human Lispro (Humalog) 0 units SC ACHS [facility] PRN Reason: Protocol Last Admin: 12/02/17 12:48 Dose: 2 units Morphine Sulfate (Morphine) 2 mg IVP Q4 PRN PRN Reason: Pain, severe (8-10) Last Admin: 12/02/17 05:56 Dose: 2 mg Ondansetron HCl (Zofran Inj) 4 mg IVP Q6 PRN PRN Reason: Nausea/Vomiting Pantoprazole Sodium (Protonix Inj) 40 mg IVP BID [facility] Last Admin: 12/02/17 09:20 Dose: 40 mg Polyethylene Glycol/Electrolytes (Golytely) 2,000 ml PO ONCE ONE Stop: 12/02/17 14:11 Physical Exam - Constitutional Appears: Well, No Acute Distress - Head Exam Head Exam: ATRAUMATIC, NORMOCEPHALIC - Eye Exam Eye Exam: Normal appearance - ENT Exam ENT Exam: Mucous Membranes Moist, Normal Exam - Respiratory Exam Respiratory Exam: Clear to Auscultation Bilateral, NORMAL BREATHING PATTERN. absent: Rales, Rhonchi, Wheezes, Respiratory Distress - Cardiovascular Exam Cardiovascular Exam: REGULAR RHYTHM, +S1, +S2 - GI/Abdominal Exam GI & Abdominal Exam: Hypoactive Bowel Sounds, Soft. absent: Distended, Firm, Guarding, Organomegaly, Rebound, Rigid, Tenderness - Extremities Exam Extremities exam: Negative for: joint swelling, pedal edema - Neurological Exam Neurological exam: Alert, Oriented x3 - Psychiatric Exam Psychiatric exam: Normal Affect, Normal Mood - Skin Skin Exam: Dry, Intact, Normal Color, Warm Results - Vital Signs Recent Vital Signs: Last Vital Signs Temp 97.5 F L 12/02/17 09:00 Pulse 80 12/02/17 09:00 Resp 19 12/02/17 09:00 BP 118/81 12/02/17 09:00 Pulse Ox 100 12/02/17 09:00 - Labs Result Diagrams: 12/02/17 12:07 12/02/17 12:07 Labs: Laboratory Results - last 24 hr 12/01/17 12/01/17 12/01/17 16:29 18:19 18:57 WBC RBC Hgb Hct MCV MCH MCHC RDW Plt Count Sodium Potassium Chloride Carbon Dioxide Anion Gap BUN Creatinine Est GFR ( Amer) Est GFR (Non-Af Amer) POC Glucose (mg/dL) 76 59 L 222 H Random Glucose Calcium Total Bilirubin AST ALT Alkaline Phosphatase Total Protein Albumin Globulin Albumin/Globulin Ratio 12/01/17 12/02/17 12/02/17 22:18 05:43 10:49 WBC RBC Hgb Hct MCV MCH MCHC RDW Plt Count Sodium Potassium Chloride Carbon Dioxide Anion Gap BUN Creatinine Est GFR ( Amer) Est GFR (Non-Af Amer) POC Glucose (mg/dL) 110 74 180 H Random Glucose Calcium Total Bilirubin AST ALT Alkaline Phosphatase Total Protein Albumin Globulin Albumin/Globulin Ratio 12/02/17 12/02/17 12:07 12:07 WBC 4.3 L RBC 4.28 Hgb 12.5 Hct 37.8 MCV 88.3 MCH 29.2 MCHC 33.0 RDW 14.0 Plt Count 225 Sodium 137 Potassium 4.1 Chloride 105 Carbon Dioxide 25 Anion Gap 11 BUN 7 Creatinine 0.7 Est GFR ( Amer) > 60 Est GFR (Non-Af Amer) > 60 POC Glucose (mg/dL) Random Glucose 172 H Calcium 9.0 Total Bilirubin 0.5 AST 21 ALT 31 Alkaline Phosphatase 176 H Total Protein 7.4 Albumin 3.9 Globulin 3.5 Albumin/Globulin Ratio 1.1 Assessment & Plan - Assessment and Plan (Free Text) Assessment: Keerthi Hummel is a 67F w/ hx of HIV, HTN, DM who presented to the ED with abd pain Acute on chronic constipation abd pain 2/2 above Duodenal inflammation, possible ulcer, cannot r/o microperf poor prep colonoscopy Plan: -started on clears by surgery -tolerated diet with signs of peritonitis -vitals stable and afebrile -recommend daily bowel regiment of miralax BID -will give 2000ml of golytly today for evacuation of bowels -recommend EGD as an oupt with Dr. Morgan -protonix 40mg PO BID -eat more fiber and drink more water D/W Dr. Kim <Baudilio iKm - Last Filed: 12/02/17 15:09> Meds - Medications Medications: Current Medications Albuterol (Ventolin Hfa 90 Mcg/Actuation (8 G)) 2 puff INH Q4H [facility] Last Admin: 12/02/17 12:48 Dose: 2 puff Bupropion HCl (Wellbutrin) 75 mg PO DAILY [facility] Last Admin: 12/02/17 10:01 Dose: 75 mg Dextrose (Dextrose 50% Inj) 0 ml IV STAT PRN; Protocol PRN Reason: Hypoglycemia Protocol Last Admin: 12/01/17 18:28 Dose: 50 ml Dextrose (Glutose 15) 0 gm PO ONCE PRN; Protocol PRN Reason: Hypoglycemia Protocol Dolutegravir Sodium (Tivicay) 50 mg PO DAILY [facility] PRN Reason: Protocol Last Admin: 12/02/17 10:01 Dose: 50 mg Duloxetine HCl (Cymbalta) 60 mg PO DAILY [facility] Last Admin: 12/02/17 10:02 Dose: 60 mg Emtricitabine/Tenofovir (Truvada 200 Mg-300 Mg) 1 tab PO DAILY [facility] PRN Reason: Protocol Last Admin: 12/02/17 10:02 Dose: 1 tab Enalapril Maleate (Vasotec) 10 mg PO DAILY [facility] Last Admin: 12/02/17 10:02 Dose: 10 mg Enoxaparin Sodium (Lovenox) 40 mg SC DAILY [facility] PRN Reason: Protocol Glucagon (Glucagen Diagnostic Kit) 0 mg IM STAT PRN; Protocol PRN Reason: Hypoglycemia Protocol Piperacillin Sod/Tazobactam (Sod 3.375 gm/ Sodium Chloride) 100 mls @ 100 mls/ hr IVPB Q6 [facility] PRN Reason: Protocol Last Admin: 12/02/17 09:18 Dose: 100 mls/hr Dextrose/Sodium Chloride (Dextrose 5%-0.45% Ns 500 Ml) 1,000 mls @ 100 mls/hr IV .Q10H [facility] Last Admin: 12/02/17 04:13 Dose: 100 mls/hr Insulin Detemir (Levemir) 30 units SC QAM [facility] Last Admin: 12/02/17 11:28 Dose: 30 units Insulin Human Lispro (Humalog) 0 units SC ACHS [facility] PRN Reason: Protocol Last Admin: 12/02/17 12:48 Dose: 2 units Morphine Sulfate (Morphine) 2 mg IVP Q4 PRN PRN Reason: Pain, severe (8-10) Last Admin: 12/02/17 05:56 Dose: 2 mg Ondansetron HCl (Zofran Inj) 4 mg IVP Q6 PRN PRN Reason: Nausea/Vomiting Pantoprazole Sodium (Protonix Inj) 40 mg IVP BID [facility] Last Admin: 12/02/17 09:20 Dose: 40 mg Results - Vital Signs Recent Vital Signs: Last Vital Signs Temp 97.5 F L 12/02/17 09:00 Pulse 80 12/02/17 09:00 Resp 19 12/02/17 09:00 BP 118/81 12/02/17 09:00 Pulse Ox 100 12/02/17 09:00 - Labs Result Diagrams: 12/02/17 12:07 12/02/17 12:07 Labs: Laboratory Results - last 24 hr 12/01/17 12/01/17 12/01/17 16:29 18:19 18:57 WBC RBC Hgb Hct MCV MCH MCHC RDW Plt Count Sodium Potassium Chloride Carbon Dioxide Anion Gap BUN Creatinine Est GFR ( Amer) Est GFR (Non-Af Amer) POC Glucose (mg/dL) 76 59 L 222 H Random Glucose Calcium Total Bilirubin AST ALT Alkaline Phosphatase Total Protein Albumin Globulin Albumin/Globulin Ratio 12/01/17 12/02/17 12/02/17 22:18 05:43 10:49 WBC RBC Hgb Hct MCV MCH MCHC RDW Plt Count Sodium Potassium Chloride Carbon Dioxide Anion Gap BUN Creatinine Est GFR ( Amer) Est GFR (Non-Af Amer) POC Glucose (mg/dL) 110 74 180 H Random Glucose Calcium Total Bilirubin AST ALT Alkaline Phosphatase Total Protein Albumin Globulin Albumin/Globulin Ratio 12/02/17 12/02/17 12:07 12:07 WBC 4.3 L RBC 4.28 Hgb 12.5 Hct 37.8 MCV 88.3 MCH 29.2 MCHC 33.0 RDW 14.0 Plt Count 225 Sodium 137 Potassium 4.1 Chloride 105 Carbon Dioxide 25 Anion Gap 11 BUN 7 Creatinine 0.7 Est GFR ( Amer) > 60 Est GFR (Non-Af Amer) > 60 POC Glucose (mg/dL) Random Glucose 172 H Calcium 9.0 Total Bilirubin 0.5 AST 21 ALT 31 Alkaline Phosphatase 176 H Total Protein 7.4 Albumin 3.9 Globulin 3.5 Albumin/Globulin Ratio 1.1 Attending/Attestation - Attestation I have personally seen and examined this patient.: Yes I have fully participated in the care of the patient.: Yes I have reviewed all pertinent clinical information: Yes Notes (Text): 12/02/17 15:03 Patient seen and examined with GI fellow on rounds earlier today. This is a 67 yr old F w/ hx of HIV, HTN, DM who presented to the ED with lower abdominal pain. CT abdomen reviewed by me. Shows colon full of stool. Last EGD in Jun 2016 that showed 1 cm hital hernia, gastritis and esophagitis. No history of H pylori or NSAID use. This morning she has no pain. Tolerated clear liquid diet. Denies having epigastric pain prior to admission. No air leak seen on the CT. Patient has pvt GI outside who she will follow with for repeat EGD once discharged. Adavnce diet as tolerated. Past colonoscopies with poor prep. Will go stringent bowel regimen and laxatives. No indication for EGD specifically if there is microperforation. PPI daily. No peritoneal signs. Follow with Dr Morgan upon discharge. No further recommendations. Thank you for letting us participate in the care of your patient. Rest of plan as per surgical service
[2017-12-02] MEDS: Enoxaparin 40 mg Syringe SC SCH (20:34)
[2017-12-03] MEDS: Albuterol HFA 90 mcg/actuation (8 g) INH SCH ×3 (03:56→11:51)
[2017-12-03 05:34] VITALS: RESP 19
[2017-12-03 05:55] LABS: HEMOGLOBIN 12.5 g/dL (12.0-16.0); MEAN CORPUSCULAR HGB CONC 32.9 g/dL (33.0-37.0); RBC 4.31 Mil/uL (3.80-5.20); RED CELL DISTRIBUTION WIDTH 13.9 % (11.5-14.5)
[2017-12-03] MEDS: Insulin Lispro (humaLOG) 100 Units/ml Inj SC SCH ×2 (06:38→13:06)
[2017-12-03 06:44] LABS: WHITE BLOOD COUNT 3.9 K/uL (4.8-10.8)
[2017-12-03 07:06] LABS: ALB/GLOB RATIO 1.2 (1.0-2.1); ALBUMIN 3.9 g/dL (3.5-5.0); ALT/SGPT 26 U/L (9-52); AST/SGOT 34 U/L (14-36); BLOOD UREA NITROGEN 4 mg/dl (7-17); CALCIUM 9.5 mg/dL (8.4-10.2); GFR AFRICAN-AMERICAN > 60; GFR NON-AFRICAN AMERICAN > 60
--- NOTE | 2017-12-03 07:52 | CP.PCM.PN ---
Subjective - Date & Time of Evaluation Date of Evaluation: 12/03/17 Time of Evaluation: 07:49 - Subjective Subjective: Surgery Pt seen and examined. No acute events. Denies fever, nausea. Pain improved. Seen by GI. Objective - Vital Signs/Intake and Output Vital Signs (last 24 hours): Temp Pulse Resp BP Pulse Ox 97.8 F 91 H 19 130/86 99 12/03/17 05:30 12/03/17 05:30 12/03/17 05:30 12/03/17 05:30 12/03/17 05:30 - Medications Medications: Current Medications Albuterol (Ventolin Hfa 90 Mcg/Actuation (8 G)) 2 puff INH Q4H [facility] Last Admin: 12/03/17 03:56 Dose: 2 puff Bupropion HCl (Wellbutrin) 75 mg PO DAILY [facility] Last Admin: 12/02/17 10:01 Dose: 75 mg Dextrose (Dextrose 50% Inj) 0 ml IV STAT PRN; Protocol PRN Reason: Hypoglycemia Protocol Last Admin: 12/01/17 18:28 Dose: 50 ml Dextrose (Glutose 15) 0 gm PO ONCE PRN; Protocol PRN Reason: Hypoglycemia Protocol Dolutegravir Sodium (Tivicay) 50 mg PO DAILY [facility] PRN Reason: Protocol Last Admin: 12/02/17 10:01 Dose: 50 mg Duloxetine HCl (Cymbalta) 60 mg PO DAILY [facility] Last Admin: 12/02/17 10:02 Dose: 60 mg Emtricitabine/Tenofovir (Truvada 200 Mg-300 Mg) 1 tab PO DAILY [facility] PRN Reason: Protocol Last Admin: 12/02/17 10:02 Dose: 1 tab Enalapril Maleate (Vasotec) 10 mg PO DAILY [facility] Last Admin: 12/02/17 10:02 Dose: 10 mg Enoxaparin Sodium (Lovenox) 40 mg SC DAILY [facility] PRN Reason: Protocol Last Admin: 12/02/17 20:34 Dose: 40 mg Glucagon (Glucagen Diagnostic Kit) 0 mg IM STAT PRN; Protocol PRN Reason: Hypoglycemia Protocol Dextrose/Sodium Chloride (Dextrose 5%-0.45% Ns 500 Ml) 1,000 mls @ 100 mls/hr IV .Q10H [facility] Last Admin: 12/03/17 03:58 Dose: 100 mls/hr Insulin Detemir (Levemir) 30 units SC QAM [facility] Last Admin: 12/02/17 11:28 Dose: 30 units Insulin Human Lispro (Humalog) 0 units SC ACHS [facility] PRN Reason: Protocol Last Admin: 12/03/17 06:38 Dose: Not Given Morphine Sulfate (Morphine) 2 mg IVP Q4 PRN PRN Reason: Pain, severe (8-10) Last Admin: 12/02/17 05:56 Dose: 2 mg Ondansetron HCl (Zofran Inj) 4 mg IVP Q6 PRN PRN Reason: Nausea/Vomiting Pantoprazole Sodium (Protonix Ec Tab) 40 mg PO DAILY [facility] Polyethylene Glycol (Miralax) 17 gm PO BID [facility] - Labs Labs: 12/03/17 05:30 12/03/17 05:30 PT 10.9 Seconds (9.8-13.1) 12/01/17 10:17 INR 1.0 (0.9-1.2) 12/01/17 10:17 APTT 32.2 Seconds (25.6-37.1) 12/01/17 10:17 - Constitutional Appears: No Acute Distress - Head Exam Head Exam: ATRAUMATIC, NORMAL INSPECTION, NORMOCEPHALIC - Eye Exam Eye Exam: EOMI, Normal appearance, PERRL Pupil Exam: NORMAL ACCOMODATION, PERRL - ENT Exam ENT Exam: Mucous Membranes Moist, Normal Exam - Neck Exam Neck Exam: Full ROM, Normal Inspection. absent: Lymphadenopathy - Respiratory Exam Respiratory Exam: NORMAL BREATHING PATTERN - Cardiovascular Exam Cardiovascular Exam: REGULAR RHYTHM, +S1, +S2. absent: Murmur - GI/Abdominal Exam GI & Abdominal Exam: Soft, Normal Bowel Sounds. absent: Distended, Firm, Guarding, Rigid, Tenderness - Extremities Exam Extremities Exam: Full ROM, Normal Capillary Refill, Normal Inspection. absent : Joint Swelling, Pedal Edema - Back Exam Back Exam: NORMAL INSPECTION - Neurological Exam Neurological Exam: Alert, Awake, CN II-XII Intact, Normal Gait, Oriented x3 - Psychiatric Exam Psychiatric exam: Normal Affect, Normal Mood - Skin Skin Exam: Dry, Intact, Normal Color, Warm Assessment and Plan - Assessment and Plan (Free Text) Assessment: Duodenitis CT finding of possible microperf -Advance diet as tolerated. -Clear for DC for surgical standpoint -No surgery indicated at this time: Pain improved. No nausea, vomiting. No free air on CT -GI f/u DW Dr. Del Angel
[2017-12-03 08:03] VITALS: BP 141/96; PULSE 90; TEMP 98.1
[2017-12-03] MEDS: Emtricitabine-Tenofovir 200 mg-300 mg Tab PO SCH (08:58)
[2017-12-03] MEDS: Enoxaparin 40 mg Syringe SC SCH (08:58)
[2017-12-03] MEDS: Insulin Detemir 100 Units/ml Inj SC SCH (08:59)
[2017-12-03] MEDS ORDERED: Pantoprazole 40 mg EC Tab PO SCH (09:00)
[2017-12-03] MEDS ORDERED: POLYETHYLENE GLYCOL 3350 17 GM/Dose PACKET PO SCH (09:00)
[2017-12-03 13:29] VITALS: O2SAT 96
--- NOTE | 2017-12-03 13:41 | CP.PCM.DIS ---
Provider - Provider Date of Admission: 12/01/17 15:00 Attending physician: Vee Gomez MD Time Spent in preparation of Discharge (in minutes): 35 Diagnosis - Discharge Diagnosis (1) Duodenitis Status: Acute Hospital Course - Lab Results Lab Results: Most Recent Lab Values WBC 3.9 K/uL (4.8-10.8) L 12/03/17 05:30 RBC 4.31 Mil/uL (3.80-5.20) 12/03/17 05:30 Hgb 12.5 g/dL (12.0-16.0) 12/03/17 05:30 Hct 37.9 % (34.0-47.0) 12/03/17 05:30 MCV 88.0 fl (81.0-99.0) 12/03/17 05:30 MCH 29.0 pg (27.0-31.0) 12/03/17 05:30 MCHC 32.9 g/dL (33.0-37.0) L 12/03/17 05:30 RDW 13.9 % (11.5-14.5) 12/03/17 05:30 Plt Count 231 K/uL (130-400) 12/03/17 05:30 MPV 7.5 fl (7.2-11.7) 12/01/17 09:59 Neut % (Auto) 57.6 % (50.0-75.0) 12/01/17 09:59 Lymph % (Auto) 32.1 % (20.0-40.0) 12/01/17 09:59 Nicholas % (Auto) 5.8 % (0.0-10.0) 12/01/17 09:59 Eos % (Auto) 3.6 % (0.0-4.0) 12/01/17 09:59 Baso % (Auto) 0.9 % (0.0-2.0) 12/01/17 09:59 Neut # (Auto) 3.0 K/uL (1.8-7.0) 12/01/17 09:59 Lymph # (Auto) 1.7 K/uL (1.0-4.3) 12/01/17 09:59 Nicholas # (Auto) 0.3 K/uL (0.0-0.8) 12/01/17 09:59 Eos # (Auto) 0.2 K/uL (0.0-0.7) 12/01/17 09:59 Baso # (Auto) 0.0 K/uL (0.0-0.2) 12/01/17 09:59 PT 10.9 Seconds (9.8-13.1) 12/01/17 10:17 INR 1.0 (0.9-1.2) 12/01/17 10:17 APTT 32.2 Seconds (25.6-37.1) 12/01/17 10:17 Sodium 143 mmol/l (132-148) 12/03/17 05:30 Potassium 4.4 MMOL/L (3.6-5.0) 12/03/17 05:30 Chloride 109 mmol/L (98-107) H 12/03/17 05:30 Carbon Dioxide 26 mmol/L (22-30) 12/03/17 05:30 Anion Gap 12 (10-20) 12/03/17 05:30 BUN 4 mg/dl (7-17) L 12/03/17 05:30 Creatinine 0.6 mg/dl (0.7-1.2) L 12/03/17 05:30 Est GFR ( Amer) > 60 12/03/17 05:30 Est GFR (Non-Af Amer) > 60 12/03/17 05:30 POC Glucose (mg/dL) 223 mg/dL (65-110) H 12/03/17 10:37 Random Glucose 121 mg/dL (65-105) H 12/03/17 05:30 Calcium 9.5 mg/dL (8.4-10.2) 12/03/17 05:30 Total Bilirubin 0.5 mg/dl (0.2-1.3) 12/03/17 05:30 AST 34 U/L (14-36) 12/03/17 05:30 ALT 26 U/L (9-52) 12/03/17 05:30 Alkaline Phosphatase 196 U/L (38-126) H 12/03/17 05:30 Total Protein 7.3 G/DL (6.3-8.2) 12/03/17 05:30 Albumin 3.9 g/dL (3.5-5.0) 12/03/17 05:30 Globulin 3.4 gm/dL (2.2-3.9) 12/03/17 05:30 Albumin/Globulin Ratio 1.2 (1.0-2.1) 12/03/17 05:30 Urine Color Yellow (YELLOW) 12/01/17 10:21 Urine Clarity Slighty-cloudy (Clear) 12/01/17 10:21 Urine pH 6.0 (5.0-8.0) 12/01/17 10:21 Ur Specific [place] 1.026 (1.003-1.030) 12/01/17 10:21 Urine Protein 30 mg/dL (NEGATIVE) 12/01/17 10:21 Urine Glucose (UA) >=500 mg/dL (Normal) 12/01/17 10:21 Urine Ketones Negative mg/dL (NEGATIVE) 12/01/17 10:21 Urine Blood Negative (NEGATIVE) 12/01/17 10:21 Urine Nitrate Negative (NEGATIVE) 12/01/17 10:21 Urine Bilirubin Negative (NEGATIVE) 12/01/17 10:21 Urine Urobilinogen 2.0 mg/dL (0.2-1.0) H 12/01/17 10:21 Ur Leukocyte Esterase Mod Annia/uL (Negative) 12/01/17 10:21 Urine RBC (Auto) 10 /hpf (0-3) H 12/01/17 10:21 Urine Microscopic WBC 3 /hpf (0-5) 12/01/17 10:21 Ur Squamous Epith Cells 4 /hpf (0-5) 12/01/17 10:21 Hyaline Casts 0-2 /hpf (0-2) 12/01/17 10:21 - Hospital Course Hospital Course: 67 y/o female, PMHx of HIV, HTN, IDDM2 and Asthma, admitted on 12/01/2017 for abdominal pain x 5 days, had a CT of abdomen report with possible Duodenitis and /or even ulcer and possible microperfortation. Surgical team and GI was consulted, the patient was treated with zosyn 3.375 IV while in the hospital, patient was evaluated by the surgical team with no surgery indicated and was cleared to advanced diet, received lactulose for constipation with resolution, improvement achieved and today denies abdominal pain, constipation, N/V/D, chills, fever, or HALL. GI was consulted with no recommendation or indication for EGD at this time, patient last EGD done by her GI doctor on 06/2016 as an out patient, at this point GI ok with f/u as an outpatient with her GI. Patient will be D/C home with PO antibx and instructions and orientation given to pt to f/u with her GI. Dx on D/C: Duodenitis Prescription on D/C -Cipro 500 po q12hx 10d -Metronidazole 500 po q8h -Colace 100 po bid -lactulose (10g/15ml) 30ml po as needed for constipation. Discharge Exam - Head Exam Head Exam: ATRAUMATIC, NORMAL INSPECTION, NORMOCEPHALIC - Eye Exam Eye Exam: EOMI, PERRL - ENT Exam ENT Exam: Mucous Membranes Moist - Respiratory Exam Respiratory Exam: Clear to PA & Lateral. absent: Rales, Rhonchi, Wheezes - Cardiovascular Exam Cardiovascular Exam: REGULAR RHYTHM, +S1, +S2 - GI/Abdominal Exam GI & Abdominal Exam: Normal Bowel Sounds, Soft. absent: Tenderness - Neurological Exam Neurological exam: Alert, Oriented x3 - Psychiatric Exam Psychiatric exam: Normal Affect, Normal Mood - Skin Skin Exam: Normal Color, Warm Discharge Plan - Follow Up Plan Condition: STABLE Disposition: HOME/ ROUTINE Instructions: Ciprofloxacin (Systemic), Metronidazole (Systemic), Acute Abdomen (Belly Pain), Adult (DC), Docusate, Lactulose Additional Instructions: hacer yeyo con hayes primario dentro de 1 semana Referrals: Baudilio Kim MD [Medical Doctor] - Clayton Garcia MD [Staff Provider] - Les Del Angel MD [Staff Provider] -
== END 2017-12-03 13:45 | disposition home or self-care (01) | DRG 392 ==
LOC: H.ER 08:40 → H.ERHOLD 15:00 → H.MEDSURG1 18:39
PROVIDERS: ADMIT Family Medicine Geriatric Medicine; ATTEND Family Medicine Geriatric Medicine
DX: K29.80 Duodenitis without bleeding (principal); K29.70 Gastritis, unspecified, without bleeding; I10 Essential (primary) hypertension; E78.00 Pure hypercholesterolemia, unspecified; E78.5 Hyperlipidemia, unspecified; J45.909 Unspecified asthma, uncomplicated; F32.9 Major depressive disorder, single episode, unspecified; Z21 Asymptomatic human immunodeficiency virus [HIV] infection status; Z88.6 Allergy status to analgesic agent; F17.210 Nicotine dependence, cigarettes, uncomplicated; E11.40 Type 2 diabetes mellitus with diabetic neuropathy, unspecified; K59.09 Other constipation; Z79.4 Long term (current) use of insulin